=== PATIENT | female | born 2000 | race African-American/Black ===

== ENCOUNTER 2022-07-14 16:26 | Outpatient (CLI) | payer OTHER, SELFPAY ==
[2022-07-14 17:01] LABS: Hemoglobin A1C 5.5 % (<5.7)
[2022-07-14 17:48] LABS: Cholesterol 194 mg/dL (0-200); HDL Direct 56 mg/dL; Triglycerides 74 mg/dL (<150)
[2022-07-14 17:58] LABS: LDL Cholesterol Direct 93 mg/dL
[2022-07-17 11:26] LABS: Insulin Level Total 49.4 uIU/mL (<=19.6)
[2022-07-18 06:32] LABS: FSH 5.8 mIU/mL (***); LH 12.6 mIU/mL (***); Progesterone 0.4 ng/mL (***)
[2022-07-18 12:47] LABS: Testosterone Total 74 ng/dL (2-45)
== END 2022-07-14 16:27 | disposition home or self-care (01) ==
LOC: ANHLAB 16:29
PROVIDERS: PCP Internal Medicine; Visit Provider Obstetrics & Gynecology
DX: N92.6 Irregular menstruation, unspecified (principal)
CPT/HCPCS: 36415; 80061; 83001; 83002; 83036; 83525; 84144; 84403

== ENCOUNTER 2023-11-10 10:01 | Outpatient (CLI) | payer OTHER, SELFPAY ==
[2023-11-10 10:58] LABS: Alanine Aminotransferase 13 U/L (6-35); Albumin Level 4.4 g/dL (3.5-5.1); Alkaline Phosphatase 56 U/L (38-126); Anion Gap 7 mmol/L (8-16); Aspartate Amino Transferase 23 U/L (14-36); Bilirubin,Total 0.6 mg/dL (0.2-1.3); Blood Urea Nitrogen 15 mg/dL (7-17); Calcium 9.3 mg/dL (8.4-10.2); Carbon Dioxide 26 mmol/L (22-30); Chloride 104 mmol/L (98-107); Cholesterol 188 mg/dL (0-200); Estimated Glomerular Filt Rate > 60; Glucose 91 mg/dL (65-110); Potassium 3.9 mmol/L (3.4-5.0); Sodium 137 mmol/L (137-145)
[2023-11-10 11:44] LABS: Hemoglobin A1C 5.6 % (<5.7)
[2023-11-13 07:09] LABS: Insulin Level Total 11.2 uIU/mL (<=18.4); LH 11.2 mIU/mL (***); Progesterone 0.4 ng/mL (***)
[2023-11-15 10:19] LABS: Testosterone Free 10.4 pg/mL (0.1-6.4); Testosterone Total 81 ng/dL (2-45)
== END 2023-11-10 10:02 | disposition home or self-care (01) ==
LOC: ANHLAB 10:04
PROVIDERS: PCP Internal Medicine; Visit Provider Obstetrics & Gynecology
DX: N92.6 Irregular menstruation, unspecified (principal); E28.2 Polycystic ovarian syndrome
CPT/HCPCS: 36415; 80053; 82465; 83001; 83002; 83036; 83525; 84144; 84402; 84403

== ENCOUNTER 2024-02-23 14:18 | Outpatient (CLI) | payer OTHER, SELFPAY ==
[2024-02-23 15:21] LABS: Hemoglobin A1C 5.2 % (<5.7)
[2024-02-28 07:14] LABS: Testosterone Free 0.9 pg/mL (0.1-6.4); Testosterone Total 25 ng/dL (2-45)
== END 2024-02-23 14:19 | disposition home or self-care (01) ==
LOC: ANHLAB 14:19
PROVIDERS: PCP Internal Medicine; Visit Provider Obstetrics & Gynecology
DX: E28.2 Polycystic ovarian syndrome (principal)
CPT/HCPCS: 36415; 83036; 84402; 84403

== ENCOUNTER 2024-09-21 11:47 | Outpatient (CLI) | payer OTHER, SELFPAY ==
[2024-09-21 12:38] LABS: Influenza A QL RT-PCR Negative (Negative); Influenza B QL RT-PCR Negative (Negative)
--- OUTSIDE RECORDS SUMMARY | 2024-09-21 13:01 | XMS_ITS | Clinical Summary ---
Author Organization [facility] Address [address] [place] [id number] Care Team Providers Care Presiding Judge Name Role Phone Unavailable Primary Care Provider Unavailabl e Social History Tobacco Use Types Packs/Day Years Used Date Smoking Tobacco: Never Assessed Comments Unknown Sex and Gender Information Value Date Recorded Sex Assigned at Not on file Legal Sex Female 8:10 AM [employer] Gender Identity Not on file Sexual Orientation Not on file Plan of Treatment Health Maintenance Due Date Last Done Comments Hepatitis C Virus (HCV) Screening 2001 Human Papillomavirus (HPV) Immunization (1 - 3-dose series) 2016 Meningococcal B Immunization (2 of 2 - Bexsero SCDM 2-dose series) 09/11/2019 03/11/2019 Pap Smear 2022 Influenza Immunization (#1) 2024 06/11/2015 SARS-COV-2 Immunization ( season) 2024 01/22/2021, 12/25/2020 Respiratory Syncytial Virus (RSV) Immunization (Adult) (1 - 1-dose 75+ series) 2076 Hepatitis B Immunization Completed 002, 2001, 2001 DTaP/Tdap/Td Immunization Discontinued 2011, 03/27/2005, 03/21/2002, Additional history exists TdaP Immunization Completed 03/18/2012 Meningococcal Immunization (ACWY) Completed 03/11/2019, 06/11/2015 Pneumococcal Immunization Combined Aged Out No longer eligible based on patient's age to complete this topic Rotavirus Immunization Aged Out No lo nger eligible based on patient's age to complete this topic
== END 2024-09-21 11:48 | disposition home or self-care (01) ==
LOC: ANHLAB 11:48
PROVIDERS: PCP Internal Medicine; Visit Provider Clinical Nurse Specialist
DX: R68.89 Other general symptoms and signs (principal)
CPT/HCPCS: 87502